=== PATIENT | male | born 1945 | race African-American/Black ===

== ENCOUNTER 2022-03-20 15:01 | Emergency (ER) | payer SELFPAY | END 2022-03-20 16:14 | disposition home or self-care (01) | LOC: NAV ERS 15:01 | DX: M54.50 Low back pain, unspecified (principal); E78.00 Pure hypercholesterolemia, unspecified; I10 Essential (primary) hypertension; F17.210 Nicotine dependence, cigarettes, uncomplicated; Z79.899 Other long term (current) drug therapy | CPT/HCPCS: 72100 ==